=== PATIENT | male | born 1985 | race Caucasian/White ===

== ENCOUNTER 2016-12-13 09:27 | Emergency (ER) | payer BC, OTHER ==
[~2016-12-13] VITALS: Ht 175.3 cm; Wt 88.5 kg
[2016-12-13 09:44] VITALS: BP_SYST 137
[2016-12-13 11:25] VITALS: BP_SYST 128
== END 2016-12-13 11:25 | disposition home or self-care (01) ==
LOC: SED 09:27
DX: S01.81XA Laceration without foreign body of other part of head, initial encounter (principal); W01.0XXA Fall on same level from slipping, tripping and stumbling without subsequent striking against object, initial encounter; Y93.89 Activity, other specified; Y92.89 Other specified places as the place of occurrence of the external cause; Y99.8 Other external cause status
CPT/HCPCS: 12011; 70450; 99284; J7030